=== PATIENT | male | born 1955 | race Caucasian/White ===

== ENCOUNTER 2019-11-07 19:39 | Inpatient (IN) ==
[2019-11-07] MEDS ORDERED: Naloxone 0.4 MG/ML INJ IVP PRN (21:40)
[2019-11-07 22:35] LABS: ABG Base Excess 7 mEq/L (-2 to 3); ABG HCO3 40 mEq/L (21-27); ABG Oxygen Saturation 96 % (95-98); ABG PCO2 97 mmHg (35-45); ABG PH 7.23 pH Units (7.32-7.45); ABG PO2 100 mmHg (85-104); ABG TCO2 43 mEq/L (20-26); Blood Gas Modality ST; Blood Gas Pressure Support 8 cm H2O
[2019-11-07 22:40] LABS: Adenovirus Not Detected (Not Detect); Bordetella Pertussis Not Detected (Not Detect); Chlamydophila pneumoniae Not Detected (Not Detect); Coronavirus 229E Not Detected (Not Detect); Coronavirus HKU1 Not Detected (Not Detect); Coronavirus NL63 Not Detected (Not Detect); Coronavirus OC43 Not Detected (Not Detect); Human Metapneumovirus Not Detected (Not Detect); Human Rhinovirus/Enterovirus Not Detected (Not Detect); Influenza A Subtype 2009 H1 Not Detected (Not Detect); Influenza B Not Detected (Not Detect); Mycoplasma pneumoniae Not Detected (Not Detect); Parainfluenza Virus 1 Not Detected (Not Detect); Parainfluenza Virus 2 Not Detected (Not Detect); Parainfluenza Virus 3 Not Detected (Not Detect); Parainfluenza Virus 4 Not Detected (Not Detect); Respiratory Syncytial Virus Not Detected (Not Detect)
[2019-11-07 22:41] LABS: SARS-CoV-2 Not Detected (Not Detect)
[2019-11-08 00:11] LABS: ABG Base Excess 8 mEq/L (-2 to 3); ABG HCO3 41 mEq/L (21-27); ABG Oxygen Saturation 91 % (95-98); ABG PCO2 91 mmHg (35-45); ABG PH 7.26 pH Units (7.32-7.45); ABG PO2 74 mmHg (85-104); ABG TCO2 43 mEq/L (20-26); Blood Gas Modality AVAPS; Blood Gas VT 500 cc
[2019-11-08] MEDS: Ipratropium/Albuterol Neb 3 ML IH SCH ×6 (00:11→19:55)
[2019-11-08] MEDS ORDERED: Perflutren Lipid Microsphere 1.3 ML in 0.9 % Sodium Chloride 8.7 ML IVP PRN (00:38)
[2019-11-08] MEDS: MethylPREDNISolone 40 MG/ML VIAL IVP SCH ×3 (00:59→17:01)
[2019-11-08] MEDS: Azithromycin 500 MG in 0.9 % Sodium Chloride 250 ML IVPB SCH (00:59)
[2019-11-08] MEDS: Erythromycin OPTH Oint BOTH EYES SCH ×4 (00:59→18:00)
[2019-11-08 05:35] LABS: Basophils % 0.2 %
[2019-11-08 05:37] LABS: Hematocrit 51.5 % (37.5-50.1); Hemoglobin 14.5 g/dL (12.9-16.9); Immature Granulocytes % 1.6 % (0-4); Immature Platelets 27.7 % (1.1-6.1); Lymphocytes # 0.2 K/mcL (0.6-4.6); Lymphocytes % 2.2 %; Mean Corpuscular HGB Conc 28.2 g/dL (31.6-35.5); Mean Corpuscular Volume 95.9 fL (83.0-100.0); Monocytes # 0.3 K/mcL (0.0-1.3); Neutrophils # 10.3 K/mcL (1.6-8.9); Nucleated Red Blood Cells 0.6 /100 WBC (0); Red Blood Count 5.37 M/mcL (4.19-5.50); White Blood Count 11.1 K/mcL (4.3-11.1)
[2019-11-08 05:39] LABS: Platelet Count 71 K/mcL (140-400)
[2019-11-08 05:47] LABS: VBG HCO3 37 mEq/L (21-27); VBG PCO2 70 mmHg (41-51); VBG PH 7.33 pH Units (7.32-7.42); VBG PO2 188 mmHg (25-50)
[2019-11-08 05:49] LABS: INR 1.6; Prothrombin Time 17.9 Seconds (9.4-12.1)
[2019-11-08 05:56] LABS: Anisocytosis 1+ (Not Present); Hypochromasia Present (Not Present); Platelet Estimate Decreased (Normal)
[2019-11-08] MEDS ORDERED: *HR* Heparin 5,000 UNIT/ML VIAL SQ SCH (06:00)
[2019-11-08 06:01] LABS: Alanine Aminotransferase 36 Units/L (7-52); Albumin 3.6 g/dL (3.5-5.7); Albumin/Globulin Ratio 1.1 (1.1-2.2); Alkaline Phosphatase 93 Units/L (34-104); Aspartate Amino Transferase 35 Units/L (13-39); BUN/Creatinine Ratio 29 (6-26); Bilirubin,Total 1.3 mg/dL (0.3-1.0); Blood Urea Nitrogen 25 mg/dL (8-23); Calcium 8.1 mg/dL (8.6-10.3); Carbon Dioxide 35 mEq/L (23-29); Chloride 99 mEq/L (98-107); Globulin 3.3 g/dL (2.4-3.5); Glucose 107 mg/dL (70-105); Magnesium 1.9 mg/dL (1.6-2.6); Osmolality,Calculated 293 (280-300); Phosphorous 3.9 mg/dL (2.7-4.5); Potassium 4.5 mEq/L (3.5-5.1); Sodium 139 mEq/L (136-145); Total Protein 6.9 g/dL (6.4-8.9); Troponin I 0.18 ng/mL (< 0.04); eGFR For African Americans > 60 (> 60); eGFR For Non-African Americans > 60 (> 60)
[2019-11-08 06:14] LABS: Large Platelets Present (Not Present)
[2019-11-08] MEDS ORDERED: Furosemide 40 MG TABLET PO SCH (08:00)
[2019-11-08 08:53] LABS: Estimated Average Glucose 154 mg/dl
[2019-11-08] MEDS ORDERED: Furosemide 40 MG/4 ML VIAL IVP SCH (09:15)
[2019-11-08] MEDS ORDERED: Furosemide 20 MG/2 ML VIAL IVP SCH (09:30)
[2019-11-08] MEDS ORDERED: Isovue-370 500 ML BOTTLE IVP ONE (10:28)
[2019-11-08] MEDS: cefTRIAXone 2,000 MG in Water for inj. (sterile) 20 ML IVP SCH (16:59)
[2019-11-08] MEDS: *HR* Enoxaparin 150 MG/ML SYRINGE SQ SCH (17:59)
[2019-11-08] MEDS: Furosemide 40 MG/4 ML VIAL IVP SCH (20:10)
[2019-11-09] MEDS: MethylPREDNISolone 40 MG/ML VIAL IVP SCH ×3 (00:01→16:55)
[2019-11-09] MEDS: Azithromycin 500 MG in 0.9 % Sodium Chloride 250 ML IVPB SCH (00:01)
[2019-11-09] MEDS: Ipratropium/Albuterol Neb 3 ML IH SCH ×6 (00:17→20:14)
[2019-11-09] MEDS: Erythromycin OPTH Oint BOTH EYES SCH ×4 (00:17→18:19)
[2019-11-09 05:19] LABS: VBG HCO3 43 mEq/L (21-27); VBG PCO2 90 mmHg (41-51); VBG PH 7.29 pH Units (7.32-7.42); VBG PO2 46 mmHg (25-50)
[2019-11-09 05:37] LABS: Hemoglobin 13.9 g/dL (12.9-16.9); Immature Granulocytes % 0.8 % (0-4); Immature Platelets 27.4 % (1.1-6.1); Lymphocytes # 0.3 K/mcL (0.6-4.6); Lymphocytes % 2.8 %; Mean Corpuscular HGB Conc 27.8 g/dL (31.6-35.5); Mean Corpuscular Hemoglobin 26.8 pg (28.0-33.3); Mean Corpuscular Volume 96.5 fL (83.0-100.0); Mean Platelet Volume 12.2 fL (9.4-12.4); Monocytes # 0.3 K/mcL (0.0-1.3); Monocytes % 2.7 %; Nucleated Red Blood Cells 0.4 /100 WBC (0); Red Blood Count 5.18 M/mcL (4.19-5.50); Red Cell Distribution Width 17.2 % (11.5-14.5); Segmented Neutrophils % 93.7 %; White Blood Count 9.6 K/mcL (4.3-11.1)
[2019-11-09 05:38] LABS: BUN/Creatinine Ratio 29 (6-26); Blood Urea Nitrogen 30 mg/dL (8-23); Calcium 8.1 mg/dL (8.6-10.3); Carbon Dioxide 42 mEq/L (23-29); Chloride 97 mEq/L (98-107); Glucose 127 mg/dL (70-105); Osmolality,Calculated 300 (280-300); Potassium 4.2 mEq/L (3.5-5.1); Sodium 141 mEq/L (136-145); eGFR For African Americans > 60 (> 60); eGFR For Non-African Americans > 60 (> 60)
[2019-11-09 05:41] LABS: Platelet Count 74 K/mcL (140-400)
[2019-11-09] MEDS: *HR* Enoxaparin 150 MG/ML SYRINGE SQ SCH ×2 (05:45→18:17)
[2019-11-09 06:19] LABS: Hypochromasia Present (Not Present); Platelet Estimate Decreased (Normal); Polychromasia 1+ (Not Present)
[2019-11-09] MEDS: allopurinoL 100 MG TABLET PO SCH (08:44)
[2019-11-09] MEDS: lisinopriL 20 MG TABLET PO SCH (08:44)
[2019-11-09] MEDS: Aspirin Enteric Coated 81 MG Tablet PO SCH (08:44)
[2019-11-09] MEDS: cefTRIAXone 2,000 MG in Water for inj. (sterile) 20 ML IVP SCH (08:45)
[2019-11-09] MEDS: Furosemide 40 MG/4 ML VIAL IVP SCH ×2 (08:45→20:44)
[2019-11-09] MEDS ORDERED: *HR* Promethazine 25 MG/ML VIAL IVP ONE (09:17)
[2019-11-09] MEDS ORDERED: Albuterol 2.5 MG/3 ML NEBULIZER IH PRN (10:48)
[2019-11-09] MEDS: Piperacillin/Tazobactam 3.375 GM in 0.9 % Sodium Chloride Mini Bag 100 ML IVPB SCH (18:18)
[2019-11-09] MEDS: Budesonide/Formoterol 160/4.5 1 PUFF INH IH SCH (20:14)
[2019-11-10] MEDS: Ipratropium/Albuterol Neb 3 ML IH SCH ×7 (00:05→23:41)
[2019-11-10] MEDS: Azithromycin 500 MG in 0.9 % Sodium Chloride 250 ML IVPB SCH (01:15)
[2019-11-10] MEDS: MethylPREDNISolone 40 MG/ML VIAL IVP SCH ×2 (01:15→08:20)
[2019-11-10] MEDS: Erythromycin OPTH Oint BOTH EYES SCH ×5 (01:20→23:35)
[2019-11-10 02:20] LABS: Basophils % 0.1 %; Red Cell Distribution Width 17.3 % (11.5-14.5)
[2019-11-10 02:22] LABS: Hemoglobin 13.7 g/dL (12.9-16.9); Immature Granulocytes % 0.7 % (0-4); Lymphocytes # 0.2 K/mcL (0.6-4.6); Mean Corpuscular Hemoglobin 27.2 pg (28.0-33.3); Mean Corpuscular Volume 97.4 fL (83.0-100.0); Monocytes # 0.5 K/mcL (0.0-1.3); Monocytes % 4.5 %; Neutrophils # 9.8 K/mcL (1.6-8.9); Nucleated Red Blood Cells 0.4 /100 WBC (0); Red Blood Count 5.03 M/mcL (4.19-5.50); Segmented Neutrophils % 92.7 %; White Blood Count 10.6 K/mcL (4.3-11.1)
[2019-11-10 02:23] LABS: Platelet Count 70 K/mcL (140-400)
[2019-11-10 02:43] LABS: BUN/Creatinine Ratio 30 (6-26); Blood Urea Nitrogen 31 mg/dL (8-23); Calcium 8.6 mg/dL (8.6-10.3); Carbon Dioxide 44 mEq/L (23-29); Chloride 94 mEq/L (98-107); Glucose 110 mg/dL (70-105); Osmolality,Calculated 303 (280-300); Potassium 3.8 mEq/L (3.5-5.1); Sodium 143 mEq/L (136-145); eGFR For African Americans > 60 (> 60); eGFR For Non-African Americans > 60 (> 60)
[2019-11-10 05:02] LABS: ABG Base Excess 13 mEq/L (-2 to 3); ABG HCO3 43 mEq/L (21-27); ABG Oxygen Saturation 95 % (95-98); ABG PCO2 75 mmHg (35-45); ABG PH 7.36 pH Units (7.32-7.45); ABG PO2 84 mmHg (85-104); ABG TCO2 45 mEq/L (20-26); Blood Gas Modality BiLevel; Blood Gas VT 650 cc
[2019-11-10] MEDS: Piperacillin/Tazobactam 3.375 GM in 0.9 % Sodium Chloride Mini Bag 100 ML IVPB SCH ×2 (05:40→18:39)
[2019-11-10] MEDS: *HR* Enoxaparin 150 MG/ML SYRINGE SQ SCH (05:41)
[2019-11-10] MEDS: allopurinoL 100 MG TABLET PO SCH (07:33)
[2019-11-10] MEDS: lisinopriL 20 MG TABLET PO SCH (07:33)
[2019-11-10] MEDS: Aspirin Enteric Coated 81 MG Tablet PO SCH (07:33)
[2019-11-10] MEDS: cefTRIAXone 2,000 MG in Water for inj. (sterile) 20 ML IVP SCH (08:20)
[2019-11-10] MEDS: Furosemide 40 MG/4 ML VIAL IVP SCH (08:20)
[2019-11-10] MEDS: Budesonide/Formoterol 160/4.5 1 PUFF INH IH SCH ×2 (08:42→19:48)
[2019-11-10] MEDS: Furosemide 40 MG TABLET PO SCH (17:36)
[2019-11-10] MEDS: Doxycycline 100 MG in 0.9 % Sodium Chloride Mini Bag 100 ML IVPB SCH (17:38)
[2019-11-10] MEDS: *HR* Heparin 5,000 UNIT/ML VIAL SQ SCH (17:41)
[2019-11-11 01:43] LABS: Basophils % 0.2 %; Hemoglobin 13.4 g/dL (12.9-16.9); Lymphocytes % 2.9 %
[2019-11-11 01:45] LABS: Eosinophils % 0.1 %; Hematocrit 46.9 % (37.5-50.1); Immature Granulocytes % 0.8 % (0-4); Immature Platelets 22.5 % (1.1-6.1); Lymphocytes # 0.3 K/mcL (0.6-4.6); Mean Corpuscular HGB Conc 28.6 g/dL (31.6-35.5); Mean Corpuscular Hemoglobin 27.5 pg (28.0-33.3); Mean Corpuscular Volume 96.1 fL (83.0-100.0); Monocytes # 0.8 K/mcL (0.0-1.3); Monocytes % 7.9 %; Nucleated Red Blood Cells 0.6 /100 WBC (0); Red Blood Count 4.88 M/mcL (4.19-5.50); Red Cell Distribution Width 17.4 % (11.5-14.5); Segmented Neutrophils % 88.1 %; White Blood Count 10.6 K/mcL (4.3-11.1)
[2019-11-11 01:50] LABS: Platelet Count 59 K/mcL (140-400)
[2019-11-11 01:51] LABS: Neutrophils # 9.3 K/mcL (1.6-8.9)
[2019-11-11 02:04] LABS: Alanine Aminotransferase 28 Units/L (7-52); Albumin 3.5 g/dL (3.5-5.7); Albumin/Globulin Ratio 1.2 (1.1-2.2); Alkaline Phosphatase 80 Units/L (34-104); Aspartate Amino Transferase 42 Units/L (13-39); BUN/Creatinine Ratio 29 (6-26); Bilirubin,Total 0.6 mg/dL (0.3-1.0); Blood Urea Nitrogen 33 mg/dL (8-23); Calcium 8.4 mg/dL (8.6-10.3); Carbon Dioxide 36 mEq/L (23-29); Chloride 94 mEq/L (98-107); Glucose 124 mg/dL (70-105); Osmolality,Calculated 299 (280-300); Potassium 3.2 mEq/L (3.5-5.1); Sodium 140 mEq/L (136-145); Total Protein 6.5 g/dL (6.4-8.9); eGFR For African Americans > 60 (> 60); eGFR For Non-African Americans > 60 (> 60)
[2019-11-11 02:43] LABS: Platelet Estimate Decreased (Normal)
[2019-11-11] MEDS: Ipratropium/Albuterol Neb 3 ML IH SCH ×6 (04:02→23:03)
[2019-11-11 04:22] LABS: ABG Base Excess 12 mEq/L (-2 to 3); ABG HCO3 45 mEq/L (21-27); ABG Oxygen Saturation 95 % (95-98); ABG PCO2 94 mmHg (35-45); ABG PH 7.29 pH Units (7.32-7.45); ABG PO2 90 mmHg (85-104); ABG TCO2 48 mEq/L (20-26)
[2019-11-11] MEDS: *HR* Heparin 5,000 UNIT/ML VIAL SQ SCH (05:42)
[2019-11-11] MEDS: Doxycycline 100 MG in 0.9 % Sodium Chloride Mini Bag 100 ML IVPB SCH ×2 (05:42→17:43)
[2019-11-11] MEDS: Piperacillin/Tazobactam 3.375 GM in 0.9 % Sodium Chloride Mini Bag 100 ML IVPB SCH (05:48)
[2019-11-11] MEDS: Erythromycin OPTH Oint BOTH EYES SCH ×3 (05:49→17:47)
[2019-11-11] MEDS: Aspirin Enteric Coated 81 MG Tablet PO SCH (07:38)
[2019-11-11] MEDS: allopurinoL 100 MG TABLET PO SCH (07:38)
[2019-11-11] MEDS: predniSONE 20 MG TABLET PO SCH (07:38)
[2019-11-11] MEDS: lisinopriL 20 MG TABLET PO SCH (07:38)
[2019-11-11] MEDS: Furosemide 40 MG TABLET PO SCH ×2 (07:38→17:44)
[2019-11-11] MEDS: Budesonide/Formoterol 160/4.5 1 PUFF INH IH SCH ×2 (10:31→20:22)
[2019-11-12] MEDS: Erythromycin OPTH Oint BOTH EYES SCH ×3 (00:15→11:12)
[2019-11-12 00:59] LABS: Basophils % 0.1 %; Immature Granulocytes % 1.2 % (0-4); Monocytes # 0.6 K/mcL (0.0-1.3); Monocytes % 6.8 %; Nucleated Red Blood Cells 0.4 /100 WBC (0)
[2019-11-12 01:01] LABS: Hematocrit 48.3 % (37.5-50.1); Hemoglobin 13.5 g/dL (12.9-16.9); Immature Platelets 23.9 % (1.1-6.1); Lymphocytes # 0.3 K/mcL (0.6-4.6); Lymphocytes % 3.4 %; Mean Corpuscular Volume 96.6 fL (83.0-100.0); Mean Platelet Volume 13.5 fL (9.4-12.4); Red Cell Distribution Width 17.1 % (11.5-14.5); Segmented Neutrophils % 88.5 %
[2019-11-12 01:05] LABS: Platelet Count 60 K/mcL (140-400)
[2019-11-12 01:16] LABS: BUN/Creatinine Ratio 27 (6-26); Blood Urea Nitrogen 28 mg/dL (8-23); Calcium 8.6 mg/dL (8.6-10.3); Carbon Dioxide 41 mEq/L (23-29); Chloride 91 mEq/L (98-107); Glucose 127 mg/dL (70-105); Osmolality,Calculated 297 (280-300); Potassium 3.8 mEq/L (3.5-5.1); Sodium 140 mEq/L (136-145); eGFR For African Americans > 60 (> 60); eGFR For Non-African Americans > 60 (> 60)
[2019-11-12 01:37] LABS: Platelet Estimate Decreased (Normal); Polychromasia 1+ (Not Present)
[2019-11-12] MEDS: Ipratropium/Albuterol Neb 3 ML IH SCH ×4 (03:56→15:20)
[2019-11-12 04:12] LABS: Mixed Venous Blood pCO2 95 mmHg (44-46); Mixed Venous Blood pH 7.31 pH Units (7.34-7.36); Mixed Venous Blood pO2 51 mmHg (35-45)
[2019-11-12] MEDS ORDERED: *HR* Enoxaparin 40 MG/0.4 ML SYRINGE SQ SCH (06:00)
[2019-11-12] MEDS: Doxycycline 100 MG in 0.9 % Sodium Chloride Mini Bag 100 ML IVPB SCH (06:23)
[2019-11-12] MEDS: Budesonide/Formoterol 160/4.5 1 PUFF INH IH SCH (07:30)
[2019-11-12] MEDS: Furosemide 40 MG TABLET PO SCH ×2 (08:08→11:12)
[2019-11-12] MEDS: lisinopriL 20 MG TABLET PO SCH (08:09)
[2019-11-12] MEDS: predniSONE 20 MG TABLET PO SCH (08:09)
[2019-11-12] MEDS: Aspirin Enteric Coated 81 MG Tablet PO SCH (08:09)
[2019-11-12] MEDS: allopurinoL 100 MG TABLET PO SCH (08:10)
[2019-11-12 15:44] VITALS: BP 133/70
[2019-11-12] MEDS ORDERED: Doxycycline 100 MG CAPSULE PO SCH (18:00)
[2019-11-13] MEDS ORDERED: predniSONE 20 MG TABLET PO SCH (09:00)
== END 2019-11-12 18:35 | disposition home or self-care (01) | DRG 189 ==
LOC: CDU → 2NNU 23:26 → SUATTDRO 11-08 04:42 → 2ANU 11-12 04:00 → UNDODISIN 11-12 17:30
PROVIDERS: ADMIT Internal Medicine; ATTEND Internal Medicine

== ENCOUNTER 2019-11-24 17:38 | Inpatient (IN) ==
[2019-11-24 20:51] LABS: Adenovirus Not Detected (Not Detect); Bordetella Pertussis Not Detected (Not Detect); Chlamydophila pneumoniae Not Detected (Not Detect); Coronavirus 229E Not Detected (Not Detect); Coronavirus HKU1 Not Detected (Not Detect); Coronavirus NL63 Not Detected (Not Detect); Coronavirus OC43 Not Detected (Not Detect); Human Metapneumovirus Not Detected (Not Detect); Human Rhinovirus/Enterovirus Not Detected (Not Detect); Influenza A Subtype 2009 H1 Not Detected (Not Detect); Influenza B Not Detected (Not Detect); Mycoplasma pneumoniae Not Detected (Not Detect); Parainfluenza Virus 1 Not Detected (Not Detect); Parainfluenza Virus 2 Not Detected (Not Detect); Parainfluenza Virus 3 Not Detected (Not Detect); Parainfluenza Virus 4 Not Detected (Not Detect); Respiratory Syncytial Virus Not Detected (Not Detect)
[2019-11-24] MEDS ORDERED: Naloxone 0.4 MG/ML INJ IVP PRN (22:43)
[2019-11-25 00:59] LABS: INR 1.4; Prothrombin Time 16.2 Seconds (9.4-12.1)
[2019-11-25] MEDS ORDERED: Albuterol 2.5 MG/3 ML NEBULIZER IH PRN (03:46)
[2019-11-25 03:50] LABS: Amphetamine Screen,Urine Negative ng/mL (Cutoff=1000); Barbiturate Screen,Urine Negative ng/mL (Cutoff=200); Benzodiazepines Screen,Urine Negative ng/mL (Cutoff=200); Cannabinoid Screen,Urine Negative ng/mL (Cutoff = 50); Cocaine Screen,Urine Negative ng/mL (Cutoff= 300); Opiate Screen,Urine Negative ng/mL (Cutoff=300); Phencyclidine Screen,Urine Negative ng/mL (Cutoff=25)
[2019-11-25 03:51] LABS: Bilirubin,Urine Negative (Negative); Blood,Urine Large (Negative); Clarity,Urine Clear (Clear); Color,Urine Yellow (Yellow); Glucose,Urine (UA) Normal (Normal); Ketones,Urine Negative (Negative); Leukocyte Esterase,Urine Negative (Negative); Mucus,Urine Few per lpf (None-Few); Nitrite,Urine Negative (Negative); Protein,Urine >=300 mg/dL (Neg-Trace); RBC,Urine TNTC per hpf (0-3); Specific Gravity,Urine > 1.030 (1.010-1.025); WBC,Urine 15-30 per hpf (0-3)
[2019-11-25] MEDS ORDERED: Ipratropium 1 PUFF INHALER IH SCH (04:00)
[2019-11-25 04:16] LABS: ABG Base Excess 10 mEq/L (-2 to 3); ABG HCO3 42 mEq/L (21-27); ABG Oxygen Saturation 99 % (95-98); ABG PCO2 87 mmHg (35-45); ABG PO2 154 mmHg (85-104); ABG TCO2 45 mEq/L (20-26)
[2019-11-25] MEDS ORDERED: MethylPREDNISolone 40 MG/ML VIAL IVP SCH (06:00)
[2019-11-25] MEDS: Ipratropium Neb 0.5 MG NEBULIZER IH SCH ×5 (07:29→23:45)
[2019-11-25] MEDS: Furosemide 40 MG/4 ML VIAL IVP SCH ×2 (08:46→16:46)
[2019-11-25] MEDS: *HR* Enoxaparin 40 MG/0.4 ML SYRINGE SQ SCH (08:46)
[2019-11-25] MEDS ORDERED: Furosemide 40 MG/4 ML VIAL IVP SCH (09:00)
[2019-11-25 10:34] LABS: Basophils % 0.2 %; Hematocrit 51.6 % (37.5-50.1); Hemoglobin 14.6 g/dL (12.9-16.9); Immature Granulocytes % 0.4 % (0-4); Lymphocytes # 0.4 K/mcL (0.6-4.6); Lymphocytes % 8.8 %; Mean Corpuscular HGB Conc 28.3 g/dL (31.6-35.5); Mean Corpuscular Hemoglobin 27.5 pg (28.0-33.3); Mean Corpuscular Volume 97.4 fL (83.0-100.0); Mean Platelet Volume 11.3 fL (9.4-12.4); Monocytes # 0.2 K/mcL (0.0-1.3); Neutrophils # 3.9 K/mcL (1.6-8.9); Nucleated Red Blood Cells 0.4 /100 WBC (0); Red Cell Distribution Width 20.2 % (11.5-14.5); Segmented Neutrophils % 86.6 %; White Blood Count 4.5 K/mcL (4.3-11.1)
[2019-11-25 10:36] LABS: VBG HCO3 36 mEq/L (21-27); VBG PCO2 70 mmHg (41-51); VBG PH 7.33 pH Units (7.32-7.42); VBG PO2 57 mmHg (25-50)
[2019-11-25 10:37] LABS: Platelet Count 81 K/mcL (140-400)
[2019-11-25 10:49] LABS: Chol/HDL Ratio 2.8 (0-4.9)
[2019-11-25 10:51] LABS: Chol/HDL Ratio 2.8 (0-4.9)
[2019-11-25 10:56] LABS: Large Platelets Present (Not Present); Platelet Estimate Slight Decrease (Normal)
[2019-11-25 10:58] LABS: Alanine Aminotransferase 21 Units/L (7-52); Albumin/Globulin Ratio 1.2 (1.1-2.2); Alkaline Phosphatase 99 Units/L (34-104); Aspartate Amino Transferase 21 Units/L (13-39); BUN/Creatinine Ratio 22 (6-26); Blood Urea Nitrogen 19 mg/dL (8-23); Calcium 9.4 mg/dL (8.6-10.3); Carbon Dioxide 35 mEq/L (23-29); Chloride 97 mEq/L (98-107); Globulin 3.3 g/dL (2.4-3.5); Glucose 116 mg/dL (70-105); Osmolality,Calculated 289 (280-300); Phosphorous 3.7 mg/dL (2.7-4.5); Potassium 4.9 mEq/L (3.5-5.1); Sodium 138 mEq/L (136-145); Total Protein 7.3 g/dL (6.4-8.9); Troponin I 0.06 ng/mL (< 0.04); eGFR For African Americans > 60 (> 60); eGFR For Non-African Americans > 60 (> 60)
[2019-11-25] MEDS: Aspirin Enteric Coated 325 MG Tablet PO SCH (12:45)
[2019-11-25] MEDS: MethylPREDNISolone 40 MG/ML VIAL IVP SCH (16:46)
[2019-11-25] MEDS: *HR* OxyCODONE/APAP 5/325 TABLET PO PRN (20:21)
[2019-11-26] MEDS: Ipratropium Neb 0.5 MG NEBULIZER IH SCH ×6 (03:19→23:25)
[2019-11-26] MEDS: MethylPREDNISolone 40 MG/ML VIAL IVP SCH (05:26)
[2019-11-26 09:24] LABS: VBG HCO3 38 mEq/L (21-27); VBG PCO2 64 mmHg (41-51); VBG PH 7.38 pH Units (7.32-7.42); VBG PO2 156 mmHg (25-50)
[2019-11-26 09:25] LABS: Red Blood Count 4.99 M/mcL (4.19-5.50)
[2019-11-26 09:26] LABS: Hematocrit 46.8 % (37.5-50.1); Hemoglobin 13.5 g/dL (12.9-16.9); Immature Platelets 18.3 % (1.1-6.1); Mean Corpuscular HGB Conc 28.8 g/dL (31.6-35.5); Mean Corpuscular Hemoglobin 27.1 pg (28.0-33.3); Mean Corpuscular Volume 93.8 fL (83.0-100.0); Mean Platelet Volume 12.6 fL (9.4-12.4); Red Cell Distribution Width 19.9 % (11.5-14.5); White Blood Count 7.1 K/mcL (4.3-11.1)
[2019-11-26 09:34] LABS: Estimated Average Glucose 148 mg/dl
[2019-11-26] MEDS: *HR* Enoxaparin 40 MG/0.4 ML SYRINGE SQ SCH (09:35)
[2019-11-26] MEDS: Furosemide 40 MG/4 ML VIAL IVP SCH ×2 (09:36→15:56)
[2019-11-26] MEDS: *HR* OxyCODONE/APAP 5/325 TABLET PO PRN (09:36)
[2019-11-26] MEDS: Aspirin Enteric Coated 325 MG Tablet PO SCH (09:36)
[2019-11-26 09:42] LABS: BUN/Creatinine Ratio 27 (6-26); Blood Urea Nitrogen 24 mg/dL (8-23); Calcium 9.2 mg/dL (8.6-10.3); Carbon Dioxide 37 mEq/L (23-29); Chloride 94 mEq/L (98-107); Glucose 136 mg/dL (70-105); Osmolality,Calculated 286 (280-300); Potassium 4.2 mEq/L (3.5-5.1); Sodium 135 mEq/L (136-145); eGFR For African Americans > 60 (> 60); eGFR For Non-African Americans > 60 (> 60)
[2019-11-26] MEDS ORDERED: Albuterol 2.5 MG/3 ML NEBULIZER IH PRN (11:30)
[2019-11-26] MEDS: *HR* Rivaroxaban 10 MG TABLET PO SCH (15:56)
[2019-11-26] MEDS: traZODone 50 MG TABLET PO SCH (17:32)
[2019-11-26] MEDS: Budesonide/Formoterol 160/4.5 1 PUFF INH IH SCH (19:21)
[2019-11-27 02:17] LABS: Mean Corpuscular HGB Conc 28.2 g/dL (31.6-35.5); Red Cell Distribution Width 19.5 % (11.5-14.5)
[2019-11-27 02:19] LABS: Hematocrit 46.4 % (37.5-50.1); Hemoglobin 13.1 g/dL (12.9-16.9); Immature Platelets 16.7 % (1.1-6.1); Mean Corpuscular Hemoglobin 26.6 pg (28.0-33.3); Mean Corpuscular Volume 94.3 fL (83.0-100.0); Mean Platelet Volume 12.4 fL (9.4-12.4); Red Blood Count 4.92 M/mcL (4.19-5.50); White Blood Count 6.6 K/mcL (4.3-11.1)
[2019-11-27 02:26] LABS: BUN/Creatinine Ratio 28 (6-26); Blood Urea Nitrogen 23 mg/dL (8-23); Calcium 8.8 mg/dL (8.6-10.3); Carbon Dioxide 39 mEq/L (23-29); Chloride 90 mEq/L (98-107); Glucose 116 mg/dL (70-105); Osmolality,Calculated 279 (280-300); Potassium 4.1 mEq/L (3.5-5.1); Sodium 132 mEq/L (136-145); eGFR For African Americans > 60 (> 60); eGFR For Non-African Americans > 60 (> 60)
[2019-11-27] MEDS: Ipratropium Neb 0.5 MG NEBULIZER IH SCH ×6 (03:18→23:29)
[2019-11-27] MEDS: Budesonide/Formoterol 160/4.5 1 PUFF INH IH SCH ×2 (07:14→19:46)
[2019-11-27] MEDS: lisinopriL 20 MG TABLET PO SCH (08:15)
[2019-11-27] MEDS: allopurinoL 100 MG TABLET PO SCH (08:15)
[2019-11-27] MEDS: *HR* OxyCODONE/APAP 5/325 TABLET PO PRN ×2 (08:15→18:16)
[2019-11-27] MEDS: Aspirin Enteric Coated 81 MG Tablet PO SCH (08:15)
[2019-11-27] MEDS: predniSONE 20 MG TABLET PO SCH (08:15)
[2019-11-27] MEDS ORDERED: Perflutren Lipid Microsphere 1.3 ML in 0.9 % Sodium Chloride 8.7 ML IVP PRN (12:55)
[2019-11-27] MEDS: *HR* Rivaroxaban 10 MG TABLET PO SCH (18:14)
[2019-11-27] MEDS: Furosemide 20 MG TABLET PO SCH (18:14)
[2019-11-27] MEDS: traZODone 50 MG TABLET PO SCH (18:14)
[2019-11-28 03:21] LABS: Hematocrit 47.2 % (37.5-50.1); Hemoglobin 13.6 g/dL (12.9-16.9); Immature Platelets 14.6 % (1.1-6.1); Mean Corpuscular HGB Conc 28.8 g/dL (31.6-35.5); Mean Corpuscular Hemoglobin 27.9 pg (28.0-33.3); Mean Corpuscular Volume 96.7 fL (83.0-100.0); Mean Platelet Volume 12.6 fL (9.4-12.4); Red Blood Count 4.88 M/mcL (4.19-5.50); White Blood Count 5.9 K/mcL (4.3-11.1)
[2019-11-28 03:56] LABS: BUN/Creatinine Ratio 24 (6-26); Blood Urea Nitrogen 20 mg/dL (8-23); Calcium 8.8 mg/dL (8.6-10.3); Carbon Dioxide 41 mEq/L (23-29); Chloride 94 mEq/L (98-107); Glucose 101 mg/dL (70-105); Osmolality,Calculated 283 (280-300); Potassium 4.8 mEq/L (3.5-5.1); Sodium 135 mEq/L (136-145); eGFR For African Americans > 60 (> 60); eGFR For Non-African Americans > 60 (> 60)
[2019-11-28] MEDS: Ipratropium Neb 0.5 MG NEBULIZER IH SCH ×4 (04:03→15:35)
[2019-11-28] MEDS: Budesonide/Formoterol 160/4.5 1 PUFF INH IH SCH (07:50)
[2019-11-28] MEDS: Aspirin Enteric Coated 81 MG Tablet PO SCH (08:53)
[2019-11-28] MEDS: predniSONE 20 MG TABLET PO SCH (08:53)
[2019-11-28] MEDS: Furosemide 20 MG TABLET PO SCH (08:53)
[2019-11-28] MEDS: allopurinoL 100 MG TABLET PO SCH (08:54)
[2019-11-28] MEDS: lisinopriL 20 MG TABLET PO SCH (08:54)
[2019-11-28] MEDS ORDERED: Spironolactone 25 MG TABLET PO SCH (09:45)
[2019-11-28 11:53] VITALS: BP 144/75
[2019-11-29] MEDS ORDERED: Furosemide 20 MG TABLET PO SCH (09:00)
== END 2019-11-28 15:40 | DRG 64 ==
LOC: CDU → 2ANU 20:58 → SUATTDRO 11-25 08:05
PROVIDERS: ADMIT Internal Medicine; ATTEND Pharmacist

== ENCOUNTER 2020-09-20 21:19 | Observation (INO) ==
[2020-09-20] MEDS ORDERED: Ondansetron 4 MG/2 ML VIAL IVP PRN (23:36)
[2020-09-20] MEDS ORDERED: Naloxone 0.4 MG/ML INJ IVP PRN (23:36)
[2020-09-20] MEDS ORDERED: Acetaminophen 325 MG TABLET PO PRN (23:36)
[2020-09-21] MEDS ORDERED: Ipratropium/Albuterol Neb 3 ML IH PRN
[2020-09-21] MEDS ORDERED: 0.9 % Sodium Chloride 500 ML IVC PRN (00:03)
[2020-09-21 01:08] LABS: Basophils % 0.1 %; Hematocrit 36.1 % (37.5-50.1); Hemoglobin 11.4 g/dL (12.9-16.9); Immature Granulocytes % 0.5 % (0-4); Lymphocytes # 0.4 K/mcL (0.6-4.6); Lymphocytes % 2.9 %; Mean Corpuscular HGB Conc 31.6 g/dL (31.6-35.5); Mean Corpuscular Hemoglobin 32.9 pg (28.0-33.3); Mean Corpuscular Volume 104.3 fL (83.0-100.0); Monocytes # 0.2 K/mcL (0.0-1.3); Monocytes % 1.7 %; Neutrophils # 12.7 K/mcL (1.6-8.9); Platelet Count 141 K/mcL (140-400); Red Blood Count 3.46 M/mcL (4.19-5.50); Red Cell Distribution Width 13.6 % (11.5-14.5); Segmented Neutrophils % 94.8 %; White Blood Count 13.4 K/mcL (4.3-11.1)
[2020-09-21 01:18] LABS: INR 1.4; Prothrombin Time 15.6 Seconds (9.4-12.1)
[2020-09-21 01:25] LABS: Calcium 8.6 mg/dL (8.6-10.3); Magnesium 1.8 mg/dL (1.6-2.6); Potassium 4.3 mEq/L (3.5-5.1)
[2020-09-21 04:24] LABS: Bilirubin,Urine Negative (Negative); Blood,Urine Negative (Negative); Clarity,Urine Clear (Clear); Color,Urine Yellow (Yellow); Glucose,Urine (UA) 500 mg/dL (Normal); Ketones,Urine Negative (Negative); Leukocyte Esterase,Urine Negative (Negative); Mucus,Urine Few per lpf (None-Few); Nitrite,Urine Negative (Negative); Protein,Urine 30 mg/dL (Neg-Trace); RBC,Urine 0-3 per hpf (0-3); Specific Gravity,Urine 1.022 (1.010-1.025); Urobilinogen,Urine Normal (Normal); WBC,Urine 0-3 per hpf (0-3)
[2020-09-21] MEDS ORDERED: MethylPREDNISolone 40 MG/ML VIAL IVP SCH (06:00)
[2020-09-21] MEDS: cefTRIAXone 1,000 MG in 0.9 % Sodium Chloride Mini Bag 100 ML IVPB SCH (08:14)
[2020-09-21] MEDS: Azithromycin 500 MG in 0.9 % Sodium Chloride 250 ML IVPB SCH (08:15)
[2020-09-21] MEDS: Ipratropium/Albuterol Neb 3 ML IH SCH ×5 (09:51→23:37)
[2020-09-21] MEDS: MethylPREDNISolone 40 MG/ML VIAL IVP SCH ×3 (10:39→23:47)
[2020-09-21] MEDS: Budesonide/Formoterol 160/4.5 1 PUFF INH IH SCH ×2 (11:20→19:30)
[2020-09-22] MEDS: Ipratropium/Albuterol Neb 3 ML IH SCH ×3 (03:54→11:41)
[2020-09-22 05:20] LABS: Hematocrit 35.7 % (37.5-50.1); Hemoglobin 11.3 g/dL (12.9-16.9); Mean Corpuscular HGB Conc 31.7 g/dL (31.6-35.5); Mean Corpuscular Hemoglobin 32.7 pg (28.0-33.3); Mean Corpuscular Volume 103.2 fL (83.0-100.0); Mean Platelet Volume 11.3 fL (9.4-12.4); Platelet Count 147 K/mcL (140-400); Red Blood Count 3.46 M/mcL (4.19-5.50); Red Cell Distribution Width 13.4 % (11.5-14.5); White Blood Count 18.4 K/mcL (4.3-11.1)
[2020-09-22 05:41] LABS: BUN/Creatinine Ratio 34 (6-26); Blood Urea Nitrogen 39 mg/dL (8-23); Calcium 9.2 mg/dL (8.6-10.3); Carbon Dioxide 34 mEq/L (23-29); Chloride 103 mEq/L (98-107); Glucose 154 mg/dL (70-105); Osmolality,Calculated 304 (280-300); Potassium 4.4 mEq/L (3.5-5.1); Sodium 141 mEq/L (136-145); eGFR For African Americans > 60 (> 60); eGFR For Non-African Americans > 60 (> 60)
[2020-09-22 06:48] VITALS: BP 113/62
[2020-09-22] MEDS: Budesonide/Formoterol 160/4.5 1 PUFF INH IH SCH (07:55)
[2020-09-22] MEDS: cefTRIAXone 1,000 MG in 0.9 % Sodium Chloride Mini Bag 100 ML IVPB SCH (09:46)
[2020-09-22] MEDS: MethylPREDNISolone 40 MG/ML VIAL IVP SCH (09:50)
[2020-09-22] MEDS: Azithromycin 500 MG in 0.9 % Sodium Chloride 250 ML IVPB SCH (10:44)
== END 2020-09-22 14:18 | disposition home or self-care (01) ==
LOC: 2ANU
PROVIDERS: ADMIT Internal Medicine; ATTEND Internal Medicine

== ENCOUNTER 2021-10-04 07:56 | Inpatient (IN) ==
[2021-10-04] MEDS ORDERED: Naloxone 0.4 MG/ML INJ IVP PRN (09:53)
[2021-10-04] MEDS ORDERED: Ondansetron 4 MG/2 ML VIAL IVP PRN (09:53)
[2021-10-04 10:15] LABS: ABG Base Excess 7 mEq/L (-2 to 3); ABG HCO3 37 mEq/L (21-27); ABG Oxygen Saturation 96 % (95-98); ABG PCO2 85 mmHg (35-45); ABG PH 7.24 pH Units (7.32-7.45); ABG PO2 104 mmHg (85-104); ABG TCO2 39 mEq/L (20-26)
[2021-10-04] MEDS ORDERED: Azithromycin 250 MG TABLET PO SCH (10:15)
[2021-10-04 10:48] LABS: Basophils % 0.3 %; Eosinophils % 0.3 %; Hemoglobin 9.3 g/dL (12.9-16.9); Immature Granulocytes % 2.2 % (0-4); Lymphocytes # 0.5 K/mcL (0.6-4.6); Lymphocytes % 8.3 %; Mean Corpuscular HGB Conc 29.1 g/dL (31.6-35.5); Mean Corpuscular Hemoglobin 30.9 pg (28.0-33.3); Mean Corpuscular Volume 106.3 fL (83.0-100.0); Mean Platelet Volume 11.5 fL (9.4-12.4); Monocytes # 0.2 K/mcL (0.0-1.3); Monocytes % 2.7 %; Neutrophils # 5.2 K/mcL (1.6-8.9); Nucleated Red Blood Cells 0.8 /100 WBC (0); Platelet Count 131 K/mcL (140-400); Red Blood Count 3.01 M/mcL (4.19-5.50); Red Cell Distribution Width 15.4 % (11.5-14.5); Segmented Neutrophils % 86.2 %
[2021-10-04] MEDS: Ipratropium/Albuterol Neb 3 ML IH SCH ×4 (10:52→23:23)
[2021-10-04 10:55] LABS: INR 1.1; Prothrombin Time 12.6 Seconds (9.4-12.1)
[2021-10-04] MEDS ORDERED: cefTRIAXone 1,000 MG in 0.9 % Sodium Chloride 10 ML IVP SCH (11:00)
[2021-10-04 11:02] LABS: BUN/Creatinine Ratio 31 (6-26); Blood Urea Nitrogen 36 mg/dL (8-23); Calcium 8.8 mg/dL (8.6-10.3); Carbon Dioxide 32 mEq/L (23-29); Chloride 99 mEq/L (98-107); Glucose 117 mg/dL (70-105); Osmolality,Calculated 291 (280-300); Potassium 5.7 mEq/L (3.5-5.1); Sodium 136 mEq/L (136-145); eGFR For African Americans > 60 (> 60); eGFR For Non-African Americans > 60 (> 60)
[2021-10-04] MEDS: MethylPREDNISolone 40 MG/ML VIAL IVP SCH ×2 (11:11→17:02)
[2021-10-04 11:54] LABS: Adenovirus Not Detected (Not Detect); Bordetella Pertussis Not Detected (Not Detect); Chlamydophila pneumoniae Not Detected (Not Detect); Coronavirus 229E Not Detected (Not Detect); Coronavirus HKU1 Not Detected (Not Detect); Coronavirus NL63 Not Detected (Not Detect); Coronavirus OC43 Not Detected (Not Detect); Human Metapneumovirus Not Detected (Not Detect); Human Rhinovirus/Enterovirus Not Detected (Not Detect); Influenza A Subtype 2009 H1 Not Detected (Not Detect); Influenza B Not Detected (Not Detect); Mycoplasma pneumoniae Not Detected (Not Detect); Parainfluenza Virus 1 Not Detected (Not Detect); Parainfluenza Virus 2 Not Detected (Not Detect); Parainfluenza Virus 3 Not Detected (Not Detect); Parainfluenza Virus 4 Not Detected (Not Detect); Respiratory Syncytial Virus Not Detected (Not Detect); SARS-CoV-2 Not Detected (Not Detect)
[2021-10-04 12:22] LABS: Magnesium 2.3 mg/dL (1.6-2.6); Phosphorous 4.4 mg/dL (2.7-4.5)
[2021-10-04 12:24] LABS: Troponin I 0.05 ng/mL (< 0.04)
[2021-10-04] MEDS ORDERED: *HR* OxyCODONE/APAP 10/325 TABLET PO PRN (14:14)
[2021-10-04 15:22] LABS: ABG Base Excess 8 mEq/L (-2 to 3); ABG HCO3 36 mEq/L (21-27); ABG Oxygen Saturation 95 % (95-98); ABG PCO2 76 mmHg (35-45); ABG PH 7.29 pH Units (7.32-7.45); ABG PO2 92 mmHg (85-104); ABG TCO2 39 mEq/L (20-26); Blood Gas Modality BiLevel; Blood Gas VT 550 cc
[2021-10-04] MEDS ORDERED: Haloperidol Lactate 5 MG/ML VIAL IVP ONE (21:19)
[2021-10-04] MEDS: Mirtazapine 15 MG TABLET PO SCH (21:34)
[2021-10-04] MEDS: *HR* OxyCODONE/APAP 10/325 TABLET PO SCH (21:34)
[2021-10-05] MEDS: MethylPREDNISolone 40 MG/ML VIAL IVP SCH ×2 (00:46→09:09)
[2021-10-05] MEDS: Ipratropium/Albuterol Neb 3 ML IH SCH ×6 (03:35→23:11)
[2021-10-05 05:20] LABS: Basophils % 0.1 %; Hemoglobin 8.6 g/dL (12.9-16.9); Immature Granulocytes % 0.9 % (0-4); Lymphocytes # 0.4 K/mcL (0.6-4.6); Lymphocytes % 4.9 %; Mean Corpuscular HGB Conc 29.7 g/dL (31.6-35.5); Mean Corpuscular Hemoglobin 30.3 pg (28.0-33.3); Mean Corpuscular Volume 102.1 fL (83.0-100.0); Mean Platelet Volume 11.6 fL (9.4-12.4); Monocytes # 0.2 K/mcL (0.0-1.3); Monocytes % 1.9 %; Neutrophils # 8.2 K/mcL (1.6-8.9); Nucleated Red Blood Cells 0.3 /100 WBC (0); Platelet Count 177 K/mcL (140-400); Red Blood Count 2.84 M/mcL (4.19-5.50); Segmented Neutrophils % 92.2 %; White Blood Count 8.9 K/mcL (4.3-11.1)
[2021-10-05] MEDS ORDERED: Haloperidol Lactate 5 MG/ML VIAL IVP ONE (05:20)
[2021-10-05 05:40] LABS: BUN/Creatinine Ratio 31 (6-26); Blood Urea Nitrogen 39 mg/dL (8-23); Calcium 8.7 mg/dL (8.6-10.3); Carbon Dioxide 35 mEq/L (23-29); Chloride 95 mEq/L (98-107); Glucose 193 mg/dL (70-105); Magnesium 2.3 mg/dL (1.6-2.6); Osmolality,Calculated 295 (280-300); Phosphorous 2.9 mg/dL (2.7-4.5); Potassium 4.7 mEq/L (3.5-5.1); Sodium 135 mEq/L (136-145); eGFR For African Americans > 60 (> 60); eGFR For Non-African Americans 59 (> 60)
[2021-10-05 05:59] LABS: Folate 4.8 ng/mL (3.0-16.0)
[2021-10-05] MEDS ORDERED: Cyanocobalamin (B-12) 1,000 MCG/ML VIAL IM ONE (06:44)
[2021-10-05] MEDS: Budesonide/Formoterol 160/4.5 1 PUFF INH IH SCH ×2 (07:29→20:14)
[2021-10-05] MEDS: Aspirin Enteric Coated 81 MG Tablet PO SCH (09:08)
[2021-10-05] MEDS: *HR* OxyCODONE/APAP 10/325 TABLET PO SCH ×3 (09:08→20:51)
[2021-10-05] MEDS: *HR* Rivaroxaban 10 MG TABLET PO SCH (09:08)
[2021-10-05] MEDS: Furosemide 20 MG TABLET PO SCH (09:09)
[2021-10-05] MEDS ORDERED: Tiotropium 10 INH DOSE IH SCH (10:00)
[2021-10-05] MEDS: Mirtazapine 15 MG TABLET PO SCH (20:51)
[2021-10-05] MEDS ORDERED: MethylPREDNISolone 40 MG/ML VIAL IVP SCH (21:00)
[2021-10-06] MEDS: Ipratropium/Albuterol Neb 3 ML IH SCH ×5 (04:14→22:42)
[2021-10-06] MEDS: Budesonide/Formoterol 160/4.5 1 PUFF INH IH SCH ×2 (07:44→22:42)
[2021-10-06] MEDS: *HR* Rivaroxaban 10 MG TABLET PO SCH (08:15)
[2021-10-06] MEDS: *HR* OxyCODONE/APAP 10/325 TABLET PO SCH ×2 (08:16→16:31)
[2021-10-06] MEDS: Furosemide 20 MG TABLET PO SCH (08:16)
[2021-10-06] MEDS: Aspirin Enteric Coated 81 MG Tablet PO SCH (08:16)
[2021-10-06] MEDS ORDERED: Cyanocobalamin (B-12) 1,000 MCG TABLET PO SCH (09:00)
[2021-10-06] MEDS ORDERED: predniSONE 20 MG TABLET PO SCH (09:00)
[2021-10-06 11:19] VITALS: PULSE 70; TEMP 97.6
[2021-10-06 11:31] LABS: Hematocrit 29.6 % (37.5-50.1); Hemoglobin 9.1 g/dL (12.9-16.9); Mean Corpuscular HGB Conc 30.7 g/dL (31.6-35.5); Mean Corpuscular Hemoglobin 30.7 pg (28.0-33.3); Mean Platelet Volume 11.2 fL (9.4-12.4); Platelet Count 200 K/mcL (140-400); Red Blood Count 2.96 M/mcL (4.19-5.50); Red Cell Distribution Width 15.3 % (11.5-14.5); White Blood Count 11.8 K/mcL (4.3-11.1)
[2021-10-06 11:50] LABS: BUN/Creatinine Ratio 26 (6-26); Blood Urea Nitrogen 31 mg/dL (8-23); Calcium 8.7 mg/dL (8.6-10.3); Carbon Dioxide 39 mEq/L (23-29); Chloride 94 mEq/L (98-107); Glucose 99 mg/dL (70-105); Osmolality,Calculated 285 (280-300); Potassium 5.1 mEq/L (3.5-5.1); Sodium 134 mEq/L (136-145); eGFR For African Americans > 60 (> 60); eGFR For Non-African Americans > 60 (> 60)
[2021-10-06 12:17] VITALS: BP 153/70
[2021-10-06] MEDS ORDERED: lisinopriL 20 MG TABLET PO SCH (12:45)
[2021-10-06 17:53] VITALS: O2SAT 98
== END 2021-10-07 00:17 | disposition home or self-care (01) | DRG 190 ==
LOC: 2NENU → SUATTDRO 12:25
PROVIDERS: ADMIT Student in an Organized Health Care Education/Training Program; ATTEND Internal Medicine

== ENCOUNTER 2021-10-17 19:30 | Inpatient (IN) ==
[2021-10-17] MEDS ORDERED: Ondansetron 4 MG/2 ML VIAL IVP PRN (22:38)
[2021-10-17] MEDS ORDERED: Naloxone 0.4 MG/ML INJ IVP PRN (22:38)
[2021-10-17] MEDS ORDERED: Acetaminophen 325 MG TABLET PO PRN (22:38)
[2021-10-17 22:51] LABS: ABG Base Excess 14 mEq/L (-2 to 3); ABG HCO3 44 mEq/L (21-27); ABG Oxygen Saturation 92 % (95-98); ABG PCO2 96 mmHg (35-45); ABG PH 7.27 pH Units (7.32-7.45); ABG PO2 79 mmHg (85-104); ABG TCO2 47 mEq/L (20-26)
[2021-10-17] MEDS ORDERED: Ipratropium/Albuterol Neb 3 ML ONE (23:06)
[2021-10-17] MEDS: Ipratropium/Albuterol Neb 3 ML IH SCH (23:08)
[2021-10-18 00:54] LABS: Hematocrit 29.9 % (37.5-50.1); Hemoglobin 8.6 g/dL (12.9-16.9); Immature Platelets 16.6 % (1.1-6.1); Mean Corpuscular HGB Conc 28.8 g/dL (31.6-35.5); Mean Corpuscular Hemoglobin 30.6 pg (28.0-33.3); Mean Corpuscular Volume 106.4 fL (83.0-100.0); Red Blood Count 2.81 M/mcL (4.19-5.50); Red Cell Distribution Width 15.4 % (11.5-14.5); White Blood Count 7.4 K/mcL (4.3-11.1)
[2021-10-18 01:21] LABS: BUN/Creatinine Ratio 22 (6-26); Blood Urea Nitrogen 21 mg/dL (8-23); Calcium 8.7 mg/dL (8.6-10.3); Carbon Dioxide 43 mEq/L (23-29); Chloride 97 mEq/L (98-107); Glucose 184 mg/dL (70-105); Osmolality,Calculated 302 (280-300); Potassium 4.5 mEq/L (3.5-5.1); Sodium 142 mEq/L (136-145); eGFR For African Americans > 60 (> 60); eGFR For Non-African Americans > 60 (> 60)
[2021-10-18] MEDS ORDERED: *HR* LORazepam 2 MG/ML VIAL IVP ONE (02:48)
[2021-10-18] MEDS: Ipratropium/Albuterol Neb 3 ML IH SCH ×7 (04:01→23:58)
[2021-10-18] MEDS: Dexmedetomidine HCl 400 MCG/100 ML MLS IVC SCH (08:19)
[2021-10-18] MEDS: Azithromycin 500 MG in 0.9 % Sodium Chloride 250 ML IVPB SCH (08:20)
[2021-10-18 10:22] LABS: VBG HCO3 39 mEq/L (21-27); VBG PCO2 80 mmHg (41-51); VBG PO2 64 mmHg (25-50)
[2021-10-18 11:47] LABS: Adenovirus Not Detected (Not Detect); Bordetella Pertussis Not Detected (Not Detect); Chlamydophila pneumoniae Not Detected (Not Detect); Coronavirus 229E Not Detected (Not Detect); Coronavirus HKU1 Not Detected (Not Detect); Coronavirus NL63 Not Detected (Not Detect); Coronavirus OC43 Not Detected (Not Detect); Human Metapneumovirus Not Detected (Not Detect); Human Rhinovirus/Enterovirus Not Detected (Not Detect); Influenza A Subtype 2009 H1 Not Detected (Not Detect); Influenza B Not Detected (Not Detect); Mycoplasma pneumoniae Not Detected (Not Detect); Parainfluenza Virus 1 Not Detected (Not Detect); Parainfluenza Virus 2 Not Detected (Not Detect); Parainfluenza Virus 3 Not Detected (Not Detect); Parainfluenza Virus 4 Not Detected (Not Detect); Respiratory Syncytial Virus Not Detected (Not Detect); SARS-CoV-2 Not Detected (Not Detect)
[2021-10-18] MEDS: Nicotine 21 MG PATCH.TD24 TD SCH (18:50)
[2021-10-18] MEDS: *HR* Rivaroxaban 10 MG TABLET PO SCH (18:50)
[2021-10-18] MEDS: MethylPREDNISolone 40 MG/ML VIAL IVP SCH (21:50)
[2021-10-18] MEDS ORDERED: Haloperidol Lactate 5 MG/ML VIAL IVP ONE (23:07)
[2021-10-19] MEDS: Dexmedetomidine HCl 400 MCG/100 ML MLS IVC SCH ×3 (00:24→17:15)
[2021-10-19] MEDS: Ipratropium/Albuterol Neb 3 ML IH SCH ×5 (04:01→20:02)
[2021-10-19] MEDS: MethylPREDNISolone 40 MG/ML VIAL IVP SCH ×4 (04:55→23:44)
[2021-10-19] MEDS: Aspirin Enteric Coated 81 MG Tablet PO SCH (07:44)
[2021-10-19] MEDS: Nicotine 21 MG PATCH.TD24 TD SCH ×2 (07:44→09:44)
[2021-10-19] MEDS: Cyanocobalamin (B-12) 1,000 MCG TABLET PO SCH (07:44)
[2021-10-19] MEDS: Ezetimibe [Zetia] 10 MG Tablet PO SCH (07:44)
[2021-10-19] MEDS: lisinopriL 20 MG TABLET PO SCH (07:44)
[2021-10-19] MEDS: Azithromycin 500 MG in 0.9 % Sodium Chloride 250 ML IVPB SCH (07:44)
[2021-10-19 07:59] LABS: VBG HCO3 33 mEq/L (21-27); VBG PCO2 49 mmHg (41-51); VBG PH 7.44 pH Units (7.32-7.42); VBG PO2 142 mmHg (25-50)
[2021-10-19 08:12] LABS: Alanine Aminotransferase 14 Units/L (7-52); Albumin 3.7 g/dL (3.5-5.7); Albumin/Globulin Ratio 1.5 (1.1-2.2); Alkaline Phosphatase 83 Units/L (34-104); Aspartate Amino Transferase 15 Units/L (13-39); BUN/Creatinine Ratio 27 (6-26); Bilirubin,Direct 0.1 mg/dL (0.0-0.2); Bilirubin,Indirect 0.3 mg/dL (0.0-1.0); Bilirubin,Total 0.4 mg/dL (0.3-1.0); Blood Urea Nitrogen 29 mg/dL (8-23); Calcium 8.7 mg/dL (8.6-10.3); Carbon Dioxide 37 mEq/L (23-29); Chloride 95 mEq/L (98-107); Globulin 2.5 g/dL (2.4-3.5); Glucose 167 mg/dL (70-105); Osmolality,Calculated 292 (280-300); Potassium 4.8 mEq/L (3.5-5.1); Sodium 136 mEq/L (136-145); Total Protein 6.2 g/dL (6.4-8.9); eGFR For African Americans > 60 (> 60); eGFR For Non-African Americans > 60 (> 60)
[2021-10-19 08:14] LABS: Basophils % 0.2 %; Hematocrit 28.2 % (37.5-50.1); Hemoglobin 8.5 g/dL (12.9-16.9); Immature Granulocytes % 0.6 % (0-4); Lymphocytes # 0.3 K/mcL (0.6-4.6); Lymphocytes % 5.1 %; Mean Corpuscular HGB Conc 30.1 g/dL (31.6-35.5); Mean Corpuscular Hemoglobin 29.8 pg (28.0-33.3); Mean Corpuscular Volume 98.9 fL (83.0-100.0); Mean Platelet Volume 12.1 fL (9.4-12.4); Monocytes # 0.1 K/mcL (0.0-1.3); Monocytes % 1.5 %; Neutrophils # 6.2 K/mcL (1.6-8.9); Platelet Count 116 K/mcL (140-400); Red Blood Count 2.85 M/mcL (4.19-5.50); Red Cell Distribution Width 15.6 % (11.5-14.5); Segmented Neutrophils % 92.6 %; White Blood Count 6.7 K/mcL (4.3-11.1)
[2021-10-19 08:24] LABS: Thyroid Stimulating Hormone 1.651 mcIU/mL (0.340-5.600)
[2021-10-19] MEDS: Nicotine 2 MG GUM BC PRN ×3 (09:44→21:01)
[2021-10-19] MEDS: *HR* Rivaroxaban 10 MG TABLET PO SCH (17:16)
[2021-10-20] MEDS: Ipratropium/Albuterol Neb 3 ML IH SCH ×5 (00:58→15:42)
[2021-10-20] MEDS: Dexmedetomidine HCl 400 MCG/100 ML MLS IVC SCH (03:33)
[2021-10-20 05:00] VITALS: O2SAT 96
[2021-10-20] MEDS: MethylPREDNISolone 40 MG/ML VIAL IVP SCH ×3 (05:34→16:56)
[2021-10-20 05:48] LABS: Hematocrit 26.6 % (37.5-50.1); Hemoglobin 7.9 g/dL (12.9-16.9); Immature Granulocytes % 0.5 % (0-4); Lymphocytes # 0.2 K/mcL (0.6-4.6); Mean Corpuscular HGB Conc 29.7 g/dL (31.6-35.5); Mean Corpuscular Hemoglobin 29.5 pg (28.0-33.3); Mean Corpuscular Volume 99.3 fL (83.0-100.0); Mean Platelet Volume 12.3 fL (9.4-12.4); Monocytes # 0.1 K/mcL (0.0-1.3); Monocytes % 1.5 %; Neutrophils # 7.5 K/mcL (1.6-8.9); Platelet Count 107 K/mcL (140-400); Red Blood Count 2.68 M/mcL (4.19-5.50); Red Cell Distribution Width 15.7 % (11.5-14.5); White Blood Count 7.9 K/mcL (4.3-11.1)
[2021-10-20 05:56] LABS: VBG HCO3 32 mEq/L (21-27); VBG PCO2 56 mmHg (41-51); VBG PH 7.36 pH Units (7.32-7.42); VBG PO2 103 mmHg (25-50)
[2021-10-20 05:58] LABS: BUN/Creatinine Ratio 26 (6-26); Blood Urea Nitrogen 34 mg/dL (8-23); Calcium 8.6 mg/dL (8.6-10.3); Carbon Dioxide 34 mEq/L (23-29); Chloride 95 mEq/L (98-107); Glucose 184 mg/dL (70-105); Magnesium 2.1 mg/dL (1.6-2.6); Osmolality,Calculated 290 (280-300); Potassium 4.4 mEq/L (3.5-5.1); Sodium 134 mEq/L (136-145); eGFR For African Americans > 60 (> 60); eGFR For Non-African Americans 55 (> 60)
[2021-10-20 06:24] LABS: Folate 4.4 ng/mL (3.0-16.0)
[2021-10-20 07:52] LABS: Ferritin 10 ng/mL (20-250); Iron < 10 mcg/dL (65-175); Transferrin 286 mg/dL (203-362)
[2021-10-20] MEDS: lisinopriL 20 MG TABLET PO SCH (08:08)
[2021-10-20] MEDS: Cyanocobalamin (B-12) 1,000 MCG TABLET PO SCH (08:08)
[2021-10-20] MEDS: Aspirin Enteric Coated 81 MG Tablet PO SCH (08:08)
[2021-10-20] MEDS: Nicotine 2 MG GUM BC PRN (08:09)
[2021-10-20] MEDS: Azithromycin 500 MG in 0.9 % Sodium Chloride 250 ML IVPB SCH (08:09)
[2021-10-20] MEDS: Nicotine 21 MG PATCH.TD24 TD SCH (08:34)
[2021-10-20] MEDS: Ezetimibe [Zetia] 10 MG Tablet PO SCH (09:50)
[2021-10-20] MEDS ORDERED: *HR* OxyCODONE/APAP 5/325 TABLET PO ONE (10:41)
[2021-10-20] MEDS ORDERED: Iron Sucrose Complex 250 MG in 0.9 % Sodium Chloride 250 ML IVPB ONE (11:04)
[2021-10-20] MEDS ORDERED: Cyanocobalamin (B-12) 1,000 MCG/ML VIAL SQ ONE (11:04)
[2021-10-20 12:39] VITALS: BP 122/71; PULSE 75; TEMP 98.8
[2021-10-20] MEDS: *HR* Rivaroxaban 10 MG TABLET PO SCH (17:23)
[2021-10-21] MEDS ORDERED: Folic Acid 1 MG TABLET PO SCH (09:00)
[2021-10-21] MEDS ORDERED: Multivit/Ca/Min/Fe/FA 1 TAB TABLET PO SCH (09:00)
[2021-10-21] MEDS ORDERED: Vitamin B Complex/Vit C/Vit E 1 EACH TABLET PO SCH (09:00)
== END 2021-10-20 18:37 | disposition home health service (06) | DRG 189 ==
LOC: 3NENU → SUATTDRO 22:01
PROVIDERS: ADMIT Student in an Organized Health Care Education/Training Program; ATTEND Pharmacist